=== PATIENT | female | born 1980 | race Two or more races ===

== ENCOUNTER 2024-12-03 08:36 | Emergency (ER) | payer MEDICARE, MEDICAID, SELFPAY ==
[2024-12-03 08:37] VITALS: BMI 39.8
[2024-12-03 09:03] VITALS: BP 113/75; PULSE 73; RESP 19; TEMP 37.2; O2SAT 99; BMI 39.7
--- NOTE | 2024-12-03 09:09 | XR_ITS ---
Examination: Foot, left, 3 views Technique: AP, oblique, lateral views foot, 3 views Date and time of exam: November 28, 2024 0921 hours INDICATIONS: Foot swelling and pain beginning 5 days ago. FINDINGS: No fracture. No dislocation. No cortical bone destruction. Ossification in the Achilles insertion, 8mm plantar bony calcaneal spur Soft tissue swelling dorsum of the foot IMPRESSION: No fracture No cortical bone destruction
--- NOTE | 2024-12-03 09:09 | XR_ITS ---
Examination: Duplex scan of the lower extremity, unilateral left complete Date and time of exam: December 03, 2024 1006 hours INDICATIONS: Left leg pain and swelling beginning 7 days ago Technique: Duplex scan of the extremity veins using B-mode/grayscale imaging and Doppler spectral analysis and color flow Attention is directed to internal echogenicity, compression and augmentation involving these veins, color flow assessment, spectral analysis Findings: Major deep venous structures in the extremity demonstrate normal course and caliber. There is no evidence of deep vein thrombosis. Normal color flow and spectral analysis Impression: Negative for DVT..
--- NOTE | 2024-12-03 09:10 | PD.EDRME ---
Rapid Medical Screening Exam RME Arrival date/time: 12/03/24 08:36 43-year-old female presents to the emergency department complaints of left foot pain and swelling that radiates into her calf for 2 days. I have greeted and performed a focused initial assessment of this patient. Initial appropriate labs ordered at this time. A comprehensive ED assessment and evaluation of the patient and analysis of all test and completion of medical decision making process will be conducted by additional ED provider. Chief Complaint: Ankle/Foot Injury Time Seen by Provider: 12/03/24 08:52 Vital signs: Vital Signs Temperature 98.9 F 12/03/24 09:03 Pulse Rate 73 12/03/24 09:03 Respiratory Rate 19 12/03/24 09:03 Blood Pressure 113/75 12/03/24 09:03 Pulse Oximetry (%) 99 12/03/24 09:03 Oxygen Delivery Method Room Air 12/03/24 09:03
[2024-12-03 09:37] LABS: Basophils % (Auto) 1 % (0-2.5); Eosinophils # (Auto) 0.2 Thou/mm3 (0.0-0.5); Eosinophils % (Auto) 3 % (0-10); Hematocrit 31.6 % (36.0-46.0); Hemoglobin 9.7 g/dL (12.0-16.0); Immature Granulocytes % (Auto) 0 % (0-0); Immature Granulocytes Auto 0.01 Thou/mm3 (0.00-0.00); Lymphocytes # (Auto) 2.1 Thou/mm3 (1.0-4.8); Lymphocytes % (Auto) 31 % (10-50); Mean Corpuscular HGB Conc 30.7 g/dl (31.0-37.0); Mean Corpuscular Hemoglobin 23.9 pg (25.0-35.0); Mean Corpuscular Volume 78 fL (80-100); Monocytes # (Auto) 0.5 Thou/mm3 (0.0-0.8); Monocytes % (Auto) 7 % (0-12); Neutrophils % (Auto) 59 % (37-80); Nucleated Red Blood Cell % 0 /100 WBC (0); Platelet Count 257 Thou/mm3 (140-440); RDW Standard Deviation 47.5 fL (36.4-46.3); Red Blood Count 4.06 Miln/mm3 (4.00-5.20); White Blood Count 6.8 Thou/mm3 (3.6-11.0)
[2024-12-03 09:57] LABS: Collection Type, Urine Clean Catch; RBC,Urine 0 /hpf (0-3)
[2024-12-03 09:58] LABS: INR 1.1 (0.9-1.3); Prothrombin Time 11.5 Seconds (9.0-12.2)
[2024-12-03 09:59] LABS: Alanine Aminotransferase 18 U/L (10-49); Albumin, Serum 3.7 gm/dL (3.5-5.0); Albumin/Globulin Ratio 1.5 (1.2-2.2); Alkaline Phosphatase 107 U/L (46-116); Anion Gap 4 (7-16); Aspartate Amino Transferase 15 U/L (0-34); BUN/Creatinine Ratio 28 Ratio (12-20); Bilirubin,Total 0.2 mg/dL (0.3-1.2); Blood Urea Nitrogen 17 mg/dL (9-23); Calcium 8.2 mg/dL (8.3-10.6); Calcium (Corrected) 8.4 mg/dL (8.5-10.1); Carbon Dioxide 25.1 mMol/L (20.0-31.0); Chloride 109 mMol/L (98-107); Creatinine (Component) 0.6 mg/dL (0.6-1.3); Estimated Creatinine Clearance 141.3 mL/min (>60); Globulin 2.5 gm/dL (2.3-3.5); Glucose 99 mg/dL (74-106); Osmolality,Calculated 277 (275-295); Sodium 138 mMol/L (136-145); Total Protein 6.2 gm/dL (5.7-8.2); eGFR > 60 See Note
[2024-12-03 10:06] LABS: Bacteria,Urine Rare; Bilirubin,Urine Negative (Negative); Blood,Urine Trace (Negative); Clarity,Urine Turbid (Clear/Hazy); Color,Urine Yellow (Lt Yel-Yel); Glucose, Urine Negative (Negative); Ketones,Urine Trace (Negative); Leukocyte Esterase,Urine Positive (Negative); Nitrite,Urine Negative (Negative); PH,Urine 6.5 (5.0-7.0); Protein,Urine 1+ (Neg - Trace); Squamous Epithelial Cell,Urine 28 /hpf (0-5); WBC,Urine 16 /hpf (0-5)
[2024-12-03 10:14] LABS: Sperm,Urine Present
[2024-12-03 10:17] LABS: HCG,Qualitative Serum Negative
--- NOTE | 2024-12-03 12:24 | EDNOTE_ITS ---
<Statement entered by Ludivina Arredondo MD - 12/07/24 07:24> As co-signing physician, I was present and available for consult prn. I concur with the plan and care as documented by the midlevel provider. Lower Extremity Injury RME/HPI General Chief Complaint: Ankle/Foot Injury Stated Complaint: LEFT FOOT PAIN Time Seen by Provider: 12/03/24 08:52 Arrival date/time: 12/03/24 08:36 RME / HPI RME / HPI Narrative: 43-year-old female patient significant history of mental disorder, came in for evaluation regarding swelling to the left foot. Onset of symptoms for the last few days as swelling to left foot, associated with discomfort. Patient denies any redness. Denies any trauma. Denies any fever denies any other complaints patient is not taking any water pill. Related Data Home Medications ?Medication ?Instructions ?Recorded ?Confirmed citalopram 20 mg tablet 40 mg PO QDAY 11/30/1903/28 ibuprofen 800 mg tablet 800 mg PO TID PRN Pain 11/3003/28/22 quetiapine 100 mg tablet 400 mg PO HS 11/30/19 cholecalciferol (vitamin D3) 25 25 mcg PO QDAY 1 03/28/22 mcg (1,000 unit) tablet (Vitamin D3) vitamin E 268 mg (400 unit) capsule 400 unit PO QDAY 1 12/05/20 03/28/22 multivitamin with minerals 1 tab PO QDAY 11/15/21 0612/18 (Hair,Skin and Nails tablet) vitamin B6-vitamin E-magnesium 1 tab PO DAILY 11/15/21 03/28/22 tablet cetirizine 10 mg capsule 10 mg PO QDAY PRN Allergic R eaction 12/06/21 03/28/22 gabapentin 100 mg capsule 300 mg PO DAILY 12/06/2112/18 Previous Rx's ?Medication ?Instructions ?Recorded doxycycline hyclate 100 mg tablet 100 mg PO BID #20 ta bs 08/18/22 ibuprofen 800 mg tablet 800 mg PO TID PRN pain #30 t abs 08/18/22 furosemide 20 mg tablet (Lasix) 20 mg PO QAM #10 tabs 12/03/24 Allergies Allergy/AdvReac Type Severity Reaction Status Date / Time ketorolac Allergy Verified 12/03/24 08:37 Review of Systems Review of Systems Narrative Review of Systems: Review of system reviewed and within normal limits except mentioned in HPI ED Exam Narrative Physical exam: VITAL SIGNS: Reviewed. GENERAL APPEARANCE: Alert and interactive, follows commands, no acute distress, HEAD AND FACE: Non-traumatic. ENT: PERRL, pink conjunctivitis, eyelid no trauma, Mucous membrane moist. NECK: Supple, nontender, no nuchal rigidity. CHEST: No tenderness, no crepitus, no paradoxical movement, no retractions. LUNGS: Clear, well ventilated, symmetric, no rales, no wheezing, no ronchi, no stridor, good breath sounds bilaterally. HEART: Regular rate, regular rhythm, no murmur, no gallops. ABDOMEN: Soft, positive bowel sounds, nondistended, no guarding, nontender, no rebound, no masses, RECTAL: Deferred. GENITAL: Deferred. NEUROLOGICAL: Gross motor function intact sensory function intact, Appropriate for age. MUSCULOSKELETAL: low back nontender, full range of motion. EXTREMITIES: Left foot +1 swelling, no redness no deformity no skin breakdown with mild tenderness full range of motion. Capillary refill on the left toes less than 2 seconds SKIN: Color pink, dry, no rash, no lacerations, no abrasions, no contusions. LYMPHATICS: Deferred. Course Quality Measures none Orders Category Date Time Status US venous duplex LE LT Stat Exams 12/03/24 09:09 Completed XR foot comp LT min 3V Stat Exams 12/03/24 09:09 Completed CBC Stat Lab 12/03/24 09:25 Completed CMP [Comprehensive Metabolic Panel] Stat Lab 12/03/24 09:25 Completed HCG,Qualitative Serum Stat Lab 12/03/24 09:25 Completed Prothrombin Time with INR Stat Lab 12/03/24 09:25 Completed Urinalysis Stat Lab 12/03/24 09:45 Completed Vital Signs Vital signs: Vital Signs Temperature 98.9 F 12/03/24 09:03 Pulse Rate 73 12/03/24 09:03 Respiratory Rate 19 12/03/24 09:03 Blood Pressure 113/75 12/03/24 09:03 Pulse Oximetry (%) 99 12/03/24 09:03 Oxygen Delivery Method Room Air 12/03/24 09:03 Extremity Injury, Lower MDM Narrative MDM Narrative:: 43-year-old female patient significant history of mental disorder, came in for evaluation regarding swelling to the left foot. Onset of symptoms for the last few days as swelling to left foot, associated with discomfort. Patient denies any redness. Denies any trauma. Denies any fever denies any other complaints patient is not taking any water pill. Patient's ultrasound of the leg came back unremarkable no DVT x-ray also came back unremarkable laboratory workup came back normal. Results discussed with patient will be sent home Lasix Patient appears nontoxic and hemodynamically stable. Patient discharged home and instructed to follow-up with primary care provider in 24 to 48 hours. Instructed to return to the emergency department immediately if worsening of symptoms Patient data External records reviewed:: None Clinical information provided by:: none Social determinants that could affect healthcare access:: mental health Patient has the following chronic illnesses:: None How is presenting disease/condition affected by chronic disease/condition?: no chronic disease Evaluation data The following diagnostics were reviewed and interpreted by me:: lab results and radiology exam(s) Lab and/or radiology exams considered but not ordered:: None Interpretation Summary: See result MDM Medications / Prescriptions Medications or Prescriptions considered but not ordered:: None Medication administrations:: none Consultations Consultation(s) initiated? (list below): No Diagnosis Extremity Injury, Lower Differential Diagnosis: ankle sprain and strain and other (Foot edema, foot pain) Most likely diagnosis given after review of the tests above:: Foot edema Admission Indicated Admission indicated?: not indicated Admission Request Was there a request for admission?: No Disposition Plan Disposition Plan: Discharge Discharge Attestation Discharge Attestation: The patient was given an opportunity to ask questions and understood the discharge instructions. Discharge instructions specifically effects, indications for sooner follow up or return to the emergency department, and the expected course of current diagnosis. Patient condition: Stable Discharge Plan Plan Patient Disposition: HOME (Self Care) Disposition Comment: stable Prescriptions/Referrals Prescriptions/Med Rec: New furosemide [Lasix] 20 mg tablet 20 mg PO QAM Qty: 10 0RF No Action Hair,Skin and Nails Tablet 1 tab PO QDAY vitamin B6-vitamin E-magnesium Tablet 1 tab PO DAILY ibuprofen 800 mg tablet 800 mg PO TID PRN (Reason: Pain) Patient Comments: take 1 tablet by mouth every 6 hours if needed quetiapine 100 mg tablet 400 mg PO HS citalopram 20 mg tablet 40 mg PO QDAY vitamin E 400 unit Capsule 400 unit PO QDAY cholecalciferol (vitamin D3) [Vitamin D3] 25 mcg (1,000 unit) Tablet 25 mcg PO QDAY gabapentin 100 mg Capsule 300 mg PO DAILY cetirizine 10 mg Capsule 10 mg PO QDAY PRN (Reason: Allergic Reaction) ibuprofen 800 mg tablet 800 mg PO TID PRN (Reason: pain) Qty: 30 0RF doxycycline hyclate 100 mg tablet 100 mg PO BID Qty: 20 0RF Referrals: Sy Eddy MD [Primary Care Provider] - In 1 week Problem List Clinical Impression: Leg edema Patient/Caregiver Discharge Instructions Discharge Activity: activity as tolerated Education Materials: ED Leg Swelling in a Single Leg Additional Instructions: Thank you for the opportunity for serving you today. You are stable for discharged . You are advised to: Follow-up with your PCP in 1 to 2 days Return to ED for worsening of symptoms Wear a compression stocking in the morning remove it during the night Take medication as prescribed Print Language: Japanese Stand Alone Forms: Radha Award Info., Patient Portal Info Letter KATRIN/JONATHON Supervising Physician KATRIN/JONATHON Supervising Physician: MD Jerri
[2024-12-03 12:55] VITALS: BP 116/72; PULSE 64; RESP 16; TEMP 37.1; O2SAT 99
== END 2024-12-03 12:55 | disposition home or self-care (01) ==
PROVIDERS: Nurse Practitioner Primary Care; Emergency Provider Emergency Medicine; PCP Family Medicine
DX: R60.0 Localized edema (principal); F99 Mental disorder, not otherwise specified
CPT/HCPCS: 36415; 73630; 80053; 81001; 84703; 85025; 85610; 93971; 99284

== ENCOUNTER 2024-12-28 09:31 | Outpatient (AMB) | payer MEDICARE, MEDICAID, SELFPAY ==
[2024-12-28 09:39] VITALS: BP 104/69; PULSE 67; RESP 14; TEMP 36.5; O2SAT 99; BMI 39.8
--- NOTE | 2024-12-28 09:39 | AMB.GYNCLNOT ---
Vital Signs 12/28/24 09:39 Height 1.63 m Height Method Stated Weight 105.8 kg Weight Measurement Method Standing Scale BMI 39.8 BP 104/69 Blood Pressure Source Automatic Cuff Blood Pressure Location Left Upper Arm Position Sitting Respiration 14 Pulse 67 Pulse Source Monitor Temp 97.7 F Temp Source Oral Pulse Oximetry (%) 99 Oxygen Delivery Method Room Air Allergies/Home Meds Allergies & Medications Allergies ketorolac Allergy (Verified 12/28/24 09:40) Medication Reconciliation citalopram 20 mg tablet 40 mg PO QDAY 11/30/19 [History Confirmed 12/28/24] ibuprofen 800 mg tablet 800 mg PO TID PRN Pain 11/30/19 [History Confirmed 12/28/24] quetiapine 100 mg tablet 400 mg PO HS 11/30/19 [History Confirmed 12/28/24] cholecalciferol (vitamin D3) 25 mcg (1,000 unit) tablet (Vitamin D3) 25 mcg PO QDAY 10/04/21 [History Confirmed 12/28/24] vitamin E 268 mg (400 unit) capsule 400 unit PO QDAY 10/04/21 [History Confirmed 12/28/24] multivitamin with minerals (Hair,Skin and Nails tablet) 1 tab PO QDAY 11/15/21 [History Confirmed 12/28/24] vitamin B6-vitamin E-magnesium tablet 1 tab PO DAILY 11/15/21 [History Confirmed 12/28/24] cetirizine 10 mg capsule 10 mg PO QDAY PRN Allergic Reaction 12/06/21 [History Confirmed 12/28/24] gabapentin 100 mg capsule 300 mg PO DAILY 12/06/21 [History Confirmed 12/28/24] doxycycline hyclate 100 mg tablet 100 mg PO BID #20 tabs 08/18/22 [Rx Confirmed 12/28/24] ibuprofen 800 mg tablet 800 mg PO TID PRN pain #30 tabs 08/18/22 [Rx Confirmed 12/28/24] furosemide 20 mg tablet (Lasix) 20 mg PO QAM #10 tabs 12/03/24 [Rx Confirmed 12/28/24] Intake Visit Data Collection New Patient or Established: Established Patient (seen at [facility] within 3 years) Reason for Visit:: Infertility/ discuss lab results Seen by Clinical Staff ONLY (RN/MA): No Client Specialist Required: No Do You Feel Safe at Home: Yes Authorities Contacted: N/A PCP or OBGYN visit in last 3 months: Yes Date of Last PCP or OBGYN visit: 12/10/24 Hx Now: No Are you currently on any form of Control: No Last menstrual period: 12/06/24 Pain Present Currently: No Pain Scale Used: Arango-Herrera/Numerical Pain scale:: 0 Smoking Status Smoking Status: Never smoker 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 1. Little interest or pleasure in doing things: not at all 2. Feeling down, depressed, or hopeless: not at all Total score: 0 PHQ-9 3. Trouble falling or staying asleep, or sleeping too much: Not at all 4. Feeling tired or having little energy: Not at all 5. Poor appetite or overeating: Not at all 6. Feeling bad about yourself - or that you are a failure or have let yourself or your family down: Not at all 7. Trouble concentrating on things, such as reading the newspaper or watching television: Not at all 8. Moving or speaking so slowly that other people could have noticed? - Or the opposite - being so fidgety or restless that you have been moving around a lot more than usual: not at all 9. Thoughts that you would be better off or of hurting yourself in some way: Not at all Total score: 0 Source: Developed by Drs. Duke Pinzon, Irene Shelton, Bryce Contreras and colleagues, with an educational lloyd from [employer]. Depression screen completed yes Social History Living Situation History Marital Status: Lives With: Family Housing: House Housing Other:: pt lives with and kids Tobacco History Smoking Status: Never smoker Second Hand Smoke Exposure: No Alcohol History Alcohol Intake: Current Alcohol Intake Frequency: holidays/special occasions only Substance Use History Substance Use: no Domestic Abuse History Do You Feel Safe at Home: Yes Past Medical History Past Medical History Have you ever been diagnosed with any of the following: Neurological Problems Seizures: No Migraine: Yes Cardiology Problems Hypercholesterolemia: Yes (STOP MED 2020 PER MD) Congestive Heart Failure: No Edema: No Cellulitis: No Varicose Veins: No Respiratory Problems Chronic Obstructive Pulmonary Disease (COPD): No Asthma: No Pulmonary Fibrosis: No Tuberculosis: No Sleep Apnea: No Stomache/Intestinal Problems Hepatitis: No Obesity: Yes Genital/Urinary Problems Renal Disease: No Reproductive Problems Breast Cancer: No Previous Pregnancies: Yes (X4) Musculoskeletal Problems Arthritis: Yes Fractures: Yes (RIGHT WRIST X5 SURGERIES HAS SCREWS) Endocrine Problems Diabetes Mellitus Type 1: No Diabetes Mellitus Type 2: No Blood Problems Sickle Cell Disease: No Psychologic Problems Depression: Yes (TAKES MED) Anxiety: Yes (TAKES MED) Other Problems Hospitalization: No Down Syndrome: No Developmental Delay: No Shingles: No Falls: No Blood Transfusions: No Blood Transfusion Reaction: No Anesthesia Reactions: No Chemotherapy: No Radiation Therapy: No MRSA: No Chicken Pox: Yes Measles: No Mumps: No Cancer: No Surgical History Pacemaker: No History of Present Illness HPI Narrative Patient is presenting for fertility evaluation and management. She has not been tracking her ovulation cycles at home as previously recommended. Recent blood tests, including hormone levels and thyroid function, were reported as normal, indicating no medical issues preventing . Patient has not been using any ovulation prediction methods or ovulation test kits. She was advised to use an ayah to track her menstrual cycles and confirm ovulation with test kits. Patient expressed difficulty in contacting the clinic due to an office transition. Current and Past Medications and Supplements: Multivitamins. Diagnostic Test Results and Labs: - Blood tests TSH 1.25, fT4 0.93, HbA1c 5.4, FSH 14.9 - Liver function tests: Performed (results not specified) - Kidney function tests: Performed (results not specified) - Diabetes testing: Performed, reported as good Review of Systems Review of Systems Systems Reviewed: All systems reviewed, normal except as documented Exam General Limitations: no limitations General Appearance: alert, in no apparent distress, comfortable, cooperative, healthy appearing, well developed and well groomed Head Head exam: atraumatic, normocephalic and normal inspection Neck Neck exam: Present normal inspection, full ROM and trachea midline Chest Chest inspection: Present normal inspection and symmetric chest wall rise Abdominal Abdominal exam: Present soft and normal bowel sounds Extremities Extremities exam: Present normal inspection and full ROM Back Back exam: Present normal inspection and full ROM Psych Psychiatric exam: Present normal affect and normal mood Skin Skin exam: Present warm, dry, intact and normal color Assessment & Plan Diagnosis / Problem List (1) Female infertility, unspecified: Status: Acute (2) Abnormal uterine and vaginal bleeding, unspecified: Status: Acute Plan: - Track menstrual cycles using smartphone yaah for 1-2 months. - Perform ovulation testing with basic [id number] test kits during ayah-indicated ovulation window. - Time intercourse to coincide with ovulation. - Continue taking multivitamins. - Follow-up appointment in 2 months to review ovulation tracking results. - Consider prescribing Clomid if not ovulating. Note: - Avoid using fancy digital ovulation test kits. - Blood tests, including hormone levels and thyroid function, are within normal range. - No apparent medical issues preventing based on available test results. Additional Plan Follow Up: 2 Months Office Procedures OB Clinic LOC & Office Proc's Nursing/Assessment Patient Status: Initial/New Patient OB Clinic Nursing Assessment: Medication Reconciliation, Update PMH in EMR and Vital Signs OB Clinic Coordination of Care: Complex Care and Chronic Disease 1-5, Consent,records obtained, informed consent, Education Simp Pt/Fam, Results/Orders obtained and Staff clarify orders New Patient Charge New Patient Point Assignment: [id number] New Patient Point Charge: HOLTER TECHNICIAN Level 3 ([id number]) Established Patient Charge Established Patient Point Charge: EP Level 3 ([id number])
== END 2024-12-28 09:55 | disposition home or self-care (01) ==
LOC: HODSOBC 09:31
PROVIDERS: PCP Family Medicine; Supervising Provider Obstetrics & Gynecology; Visit Provider Obstetrics & Gynecology
DX: N93.9 Abnormal uterine and vaginal bleeding, unspecified (principal); N97.9 Female infertility, unspecified
CPT/HCPCS: 99203; 99213; G0463

== ENCOUNTER 2025-03-01 16:18 | Outpatient (AMB) | payer MEDICARE, MEDICAID, SELFPAY ==
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
[2025-03-01 15:33] VITALS: BP 115/76; PULSE 81; RESP 14; TEMP 36.7; O2SAT 98; BMI 41.3
== END 2025-03-01 16:28 | disposition home or self-care (01) ==
LOC: HODSOBC 16:18
PROVIDERS: PCP Family Medicine; Referring Provider Family Medicine; Supervising Provider Obstetrics & Gynecology; Visit Provider Obstetrics & Gynecology
DX: N97.9 Female infertility, unspecified (principal); N93.9 Abnormal uterine and vaginal bleeding, unspecified
CPT/HCPCS: 99213; G0463

== ENCOUNTER 2025-09-02 17:44 | Emergency (ER) | payer OTHER, MEDICARE, MEDICAID, SELFPAY ==
[2025-09-02 17:52] VITALS: BP 128/79; PULSE 84; RESP 18; TEMP 37.2; O2SAT 100
[2025-09-02 17:58] VITALS: BMI 37.8
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
[2025-09-02] MEDS: ACETAMINOPHEN 500 MG TABLET 1000 MG PO (18:43)
[2025-09-02 20:36] VITALS: BP 138/64; PULSE 86; RESP 18; TEMP 36.8; O2SAT 97
== END 2025-09-02 20:36 | disposition home or self-care (01) ==
PROVIDERS: Emergency Provider Emergency Medicine; PCP Family Medicine
DX: M54.2 Cervicalgia (principal); M79.652 Pain in left thigh; R51.9 Headache, unspecified; V43.52XA Car driver injured in collision with other type car in traffic accident, initial encounter
CPT/HCPCS: 70450; 72125; 73552; 81025; 99282; A9270